=== PATIENT | male | born 1975 | race Caucasian/White ===

== ENCOUNTER 2021-05-20 04:31 | Emergency (ER) | payer BC ==
[2021-05-20] MEDS ORDERED: Ondansetron 4 MG/2 ML SDV IVPUSH ONE (04:34)
[2021-05-20] MEDS ORDERED: Sodium Chloride 0.9% 1,000 ML IV ONE (04:34)
[2021-05-20] MEDS ORDERED: Sodium Chloride 0.9% 2.5 ML Syringe FLUSH PRN (04:34)
[2021-05-20] MEDS ORDERED: Sodium Chloride 0.9% 10 ML Syringe FLUSH PRN (04:34)
[2021-05-20] MEDS ORDERED: fentaNYL 50 MCG/ML SDV IVPUSH ONE ×3 (04:36→07:45)
--- NOTE | 2021-05-20 06:15 | EDM.PDOC ---
<Solomon Esteves - Last Filed: 05/20/21 06:19> ED HPI GENERAL MEDICAL PROBLEM - General Chief Complaint: Abdominal Pain Stated Complaint: ABDOMINAL PAIN Time Seen by Provider: 05/20/21 05:18 - History of Present Illness INITIAL COMMENTS - FREE TEXT/NARRATIVE: HISTORY AND PHYSICAL: History of present illness: This is a 45-year-old gentleman with no significant history of hypertension, diabetes, liver, lung, kidney problems who denies any prior surgeries other than bariatric surgery for gastric bypass performed in 2017 in [place] who presents ER today secondary to midepigastric and right periumbilical pain as well as pain radiating to his back. Patient reports that he was in his usual state of health today. He reports he was outside doing chores around 6 PM. He reports that after finishing his chores he felt discomfort in his back so he took a couple ibuprofen. Patient reports that he is aware that he is not supposed take ibuprofen and reports prior to the 2 pills that he took at 6 PM he had not taken any ibuprofen for greater than 6 months. Patient reports that the pain in his back improved until he ate dinner when he felt that the food got stuck in his stomach. Patient reports he started having significant midepigastric abdominal discomfort resulting in emesis of food particles with no biliary material, coffee-ground emesis or hematemesis. Patient reports that through the course of the night he started developing pain extending in his right periumbilical and back. Patient reports he has had no recent fevers, shakes, chills, diarrhea, dysuria, frequency, urgency, hematuria. Patient reports that he normally is extremely regular but his labs of movement was on Sunday. Patient reports no melena or bright red blood per rectum at that time. Patient reports that the p ain has been constant and not colicky in nature. Review of systems: As per history of present illness and below otherwise all systems reviewed and negative. Past medical history: As per history of present illness and as reviewed below otherwise noncontributory. Surgical history: As per history of present illness and as reviewed below otherwise noncontributory. Social history: No reported history of drug abuse. Family history: As per history of present illness and as reviewed below otherwise noncontributory. Physical exam: This patient was seen and evaluated during the 2019 SARS-CoV-2 novel coronavirus pandemic period. Community viral transmission is ongoing at time of this encounter and the emergency department is operating under pandemic response procedures. Constitutional: Patient is oriented to person, place, and time. Appears well- developed and well-nourished. No distress. HEENT: Moist mucous membranes Head: Normocephalic and atraumatic Eyes: Right eye exhibits no discharge. Left eye exhibits no discharge. No scleral icterus Neck: Normal range of motion. No tracheal deviation present. Cardiovascular: Normal rate and regular rhythm. Pulmonary: Effort normal, no respiratory distress. Abd: Soft, nondistended, no rebound/guarding, no psoas or obturator signs, no tenderness at Mcberney's point, no Jaeger's sign. Pt does not present with an exam that would be consistent with an acute surgical abdomen at this time. Patient has tenderness to palpation diffusely throughout his abdomen which is greatest in the midepigastric area as well as in his periumbilical region. Patient also has some mild discomfort with palpating his right flank. Musculoskeletal: Normal range of motion Neurologic: Alert and oriented to person, place and time. Skin: [place], warm and dry. Psychiatric: Normal mood and affect. Behavior is normal. Judgment and thought content normal. Nursing note and vital signs have been reviewed Diagnostics: CBC, CMP, lipase, CT scan of the abdomen pelvis with IV and oral contrast, Covid test. Therapeutics: Fentanyl 75 mcg IV NSS x1 L Zofran 4 mg IV Repeat dose fentanyl Assessment and plan: During the course of the patient's evaluation for abdominal pain, kidney stone, pancreatitis, cholecystitis, diverticulitis, abdominal aortic aneurysm, myocardial infarction, ischemic bowel, ruptured peptic ulcer, ruptured viscus, UTI,and appendicitis as well as other causes of abdominal pain have been considered. 45-year-old gentleman with a history of gastric bypass who presents ER today secondary to abdominal pain. Patient reports he had taken a couple tablets of ibuprofen at around 6 PM prior to the pain starting secondary to pain in his back after doing chores at home. Patient reports shortly after eating he started experiencing severe midepigastric abdominal discomfort resulting in emesis. Given his bariatric surgery, the patient will need a CT scan of his abdomen pelvis with IV as well as oral contrast. Patient also have a CBC, CMP, lipase drawn. Patient will also get a Covid test done as well. In the ED, the patient was given IV fluids, and adequate analgesia. Patient was given 1 course of fentanyl and reports some improvement but is requesting a second dose. Definitive disposition and diagnosis as appropriate pending reevaluation and review of above. Middle Abdomen Pain Score (Numeric/FACES): 7 - Related Data Allergies Allergy/AdvReac Type Severity Reaction Status Date / Time No Known Allergies Allergy Verified 05/20/21 04:47 Home Meds: Home Meds Omeprazole 40 mg PO DAILY #30 capsule. 05/20/21 [Rx] Past Medical History HEENT History: Reports: None Cardiovascular History: Reports: None Respiratory History: Reports: None Musculoskeletal History: Reports: None Neurological History: Reports: None Psychiatric History: Reports: None Endocrine/Metabolic History: Reports: None Hematologic History: Reports: None Immunologic History: Reports: None Oncologic (Cancer) History: Reports: None Dermatologic History: Reports: None - Infectious Disease History Infectious Disease History: Reports: Chicken Pox - Past Surgical History Head Surgeries/Procedures: Reports: None HEENT Surgical History: Reports: None GI Surgical History: Reports: Bariatric Procedure Male Surgical History: Reports: None Endocrine Surgical History: Reports: None Neurological Surgical History: Reports: None Musculoskeletal Surgical History: Reports: None Oncologic Surgical History: Reports: None Dermatological Surgical History: Reports: None Social & Family History - Family History Family Medical History: No Pertinent Family History - Tobacco Use Tobacco Use Status *Q: Never Tobacco User - Caffeine Use Caffeine Use: Reports: Coffee - Recreational Drug Use Recreational Drug Use: No ED ROS GENERAL - Review of Systems Review Of Systems: See Below ED EXAM, GENERAL - Physical Exam Exam: See Below #1 Interpretation EKG Date: 05/20/21 Time: 06:14 EKG Interpretation Comments: EKG: As interpreted by ER physician: [place]: Nonspecific ST-T wave abnormalities Normal axis of -[address] elevation CT Normal sinus rhythm heart rate of 91 Departure - Departure Disposition: Home, Self-Care 01 Clinical Impression: Gastritis, Constipation, Cholelithiasis - Discharge Information Prescriptions: Omeprazole 40 mg PO DAILY #30 capsule. Instructions: Cholelithiasis, Gastritis, Adult, Constipation, Adult, [id number] Referrals: Isaías Bynum MD [Primary Care Provider] - Forms: ED Department Discharge Additional Instructions: You were evaluated today on an emergent basis. At this time all of your lab work was normal and your CT did show evidence of inflammation of the lining of your stomach, constipation, and some gallstones. We did provide you with narcotic medication to help with your pain today. At this time I did discuss with you that I would like you to take omeprazole 40 mg daily for the next 30 days which has been sent to [facility] pharmacy. In addition I would like you to refrain from acidic foods including carbonated beverages. Also given that you have had a gastric bypass I do not recommend the use of NSAIDs such as aspirin, ibuprofen, Aleve. For the constipation I do recommend that you use magnesium citrate once today while at home and continue to eat an adequate amount of fiber. Please stay hydrated. If you do not have a bowel movement I recommend the use of one enema which can be purchased [id number]. If you have any worsening pain, fever or you are concerned you are welcome to return to the emergency department. [facility] [address] [place] [address] [id number] [address] [address] The patient is informed of any results of their evaluation and diagnostic workup and all questions are answered. They are given discharge instructions and return precautions. The patient is stable for discharge. The patient states they understand and agree with the plan and that they will return if their symptoms get worse or if they have any new concerns. The following information is given to patients seen in the emergency department who are being discharged to home. This information is to outline your options for follow-up care. We provide all patients seen in our emergency department with a follow-up referral. The need for follow-up, as well as the timing and circumstances, are variable depending upon the specifics of your emergency department visit. If you don't have a primary care physician on staff, we will provide you with a referral. We always advise you to contact your personal physician following an emergency department visit to inform them of the circumstance of the visit and for follow-up with them and/or the need for any referrals to a consulting specialist. The emergency department will also refer you to a specialist when appropriate. This referral assures that you have the opportunity for follow-up care with a specialist. All of these measure are taken in an effort to provide you with optimal care, which includes your follow-up. Under all circumstances we always encourage you to contact your private helen changriselda who remains a resource for coordinating your care. When calling for follow-up care, please make the office aware that this follow-up is from your recent emergency room visit. If for any reason you are refused follow-up, please contact the [facility] Emergency Department at and asked to speak to the emergency department charge nurse. <Kodak Chery - Last Filed: 05/20/21 10:06> ED HPI GENERAL MEDICAL PROBLEM - History of Present Illness INITIAL COMMENTS - FREE TEXT/NARRATIVE: Patient was signed out to me by Dr. Esteves pending CT at 7 AM. I promptly performed a detailed physical examination and my examination was done after ED treatments were initiated by the signout provider. Patient has been under the care of previous provider up until this point. On my reevaluation the patient was sleeping comfortably in the stretcher. On discussion with the patient he stated that he also has not had a bowel movement in the last 2 to 3 days. He states that he normally has bowel movements 2 times a day. He states that since being in the emergency department his pain has improved. We will reevaluate after imaging. Laboratory reviewed does not reveal any abnormalities. Urinalysis did reveal ketonuria with microscopic hematuria. The radiological images were viewed by myself along with reading the report from the radiologist. CT abdomen pelvis with IV and p.o. contrast reveals evidence of gastritis, moderately hydropic gallbladder with dependent calculi and evidence of a moderate amount of stool through the colon. No evidence of diverticulitis. After imaging I did report the findings to the patient. At this time the patient's pain was adequately controlled. I do believe the patient has 2 reasons for his pain 1 being chronic gastritis. I did encourage the patient to stop using NSAIDs as he is a gastric bypass patient. In addition I discussed the use of omeprazole daily for the next 30 days and follow-up with outpatient primary care physician. In addition I did discuss that we could provide him with magnesium citrate and use an enema outpatient for the constipation. I do believe the pain is likely secondary to the constipation. The patient was amenable to this plan had no further questions. The patient was given strict return precautions DISPOSITION: The patient was discharged home in stable condition. The patient will follow up with primary care physician in 3 to 5 days CONDITION: Fair PROCEDURES: None FINAL IMPRESSION(S)/DIAGNOSES: 1. Acute abdominal pain secondary to constipation and gastritis Kodak Chery M.D. Course - Vital Signs Last Recorded V/S: Last Vital Signs Temp 36.5 C 05/20/21 04:48 Pulse 106 H 05/20/21 08:52 Resp 16 05/20/21 08:52 BP 152/85 H 05/20/21 08:52 Pulse Ox 111 H 05/20/21 08:52 - Orders/Labs/Meds Orders: Active Orders 24 hr Category Date Time Status Saline Lock Insert [OM.PC] Stat Oth 05/20/21 04:34 Ordered Labs: Laboratory Tests 05/20/21 05/20/21 05/20/21 Range/Units 05:56 05:56 06:22 WBC 12.52 H (4.0-11.0) K/uL RBC 5.03 (4.50-5.90) M/uL Hgb 15.2 (13.0-17.0) g/dL Hct 43.2 (38.0-50.0) % MCV 85.9 (80.0-98.0) fL MCH 30.2 (27.0-32.0) pg MCHC 35.2 (31.0-37.0) g/dL RDW Std Deviation 39.5 (28.0-62.0) fl RDW Coeff of Jackeline 13 (11.0-15.0) % Plt Count 198 (150-400) K/uL MPV 9.70 (7.40-12.00) fL Neut % (Auto) 92.9 H (48.0-80.0) % Lymph % (Auto) 3.6 L (16.0-40.0) % Luce % (Auto) 3.4 (0.0-15.0) % Eos % (Auto) 0.0 (0.0-7.0) % Baso % (Auto) 0.1 (0.0-1.5) % Neut # (Auto) 11.6 H (1.4-5.7) K/uL Lymph # (Auto) 0.5 L (0.6-2.4) K/uL Luce # (Auto) 0.4 (0.0-0.8) K/uL Eos # (Auto) 0.0 (0.0-0.7) K/uL Baso # (Auto) 0.0 (0.0-0.1) K/uL Nucleated RBC % 0.0 /100WBC Nucleated RBCs # 0 K/uL Sodium 137 (136-148) mmol/L Potassium 3.8 (3.5-5.1) mmol/L Chloride 102 (98-107) mmol/L Carbon Dioxide 26.2 (21.0-32.0) mmol/L BUN 20 H (7.0-18.0) mg/dL Creatinine 0.9 (0.8-1.3) mg/dL Est Cr Clr Drug Dosing 98.17 mL/min Estimated GFR (MDRD) > 60.0 ml/min Glucose 160 H (74-106) mg/dL Calcium 9.0 (8.5-10.1) mg/dL Total Bilirubin 0.8 (0.2-1.0) mg/dL AST 21 (15-37) IU/L ALT 31 (14-63) IU/L Alkaline Phosphatase 84 (46-116) U/L Total Protein 7.8 (6.4-8.2) g/dL Albumin 3.8 (3.4-5.0) g/dL Globulin 4.0 (2.6-4.0) g/dL Albumin/Globulin Ratio 0.9 (0.9-1.6) Lipase 49 L (73-393) U/L Urine Color Urine Appearance Urine pH (5.0-8.0) Ur Specific Garrett (1.001-1.035) Urine Protein (NEGATIVE) mg/dL Urine Glucose (UA) (NEGATIVE) mg/dL Urine Ketones (NEGATIVE) mg/dL Urine Occult Blood (NEGATIVE) Urine Nitrite (NEGATIVE) Urine Bilirubin (NEGATIVE) Urine Urobilinogen (<2.0) EU/dL Ur Leukocyte Esterase (NEGATIVE) Urine RBC (0-2/HPF) Urine WBC (0-5/HPF) Ur Epithelial Cells (NONE-FEW) Urine Bacteria (NEGATIVE) Urine Mucus (NONE-MOD) SARS-CoV-2 RNA (KARELY) NEGATIVE (NEGATIVE) 05/20/21 Range/Units 07:14 WBC (4.0-11.0) K/uL RBC (4.50-5.90) M/uL Hgb (13.0-17.0) g/dL Hct (38.0-50.0) % MCV (80.0-98.0) fL MCH (27.0-32.0) pg MCHC (31.0-37.0) g/dL RDW Std Deviation (28.0-62.0) fl RDW Coeff of Jackeline (11.0-15.0) % Plt Count (150-400) K/uL MPV (7.40-12.00) fL Neut % (Auto) (48.0-80.0) % Lymph % (Auto) (16.0-40.0) % Luce % (Auto) (0.0-15.0) % Eos % (Auto) (0.0-7.0) % Baso % (Auto) (0.0-1.5) % Neut # (Auto) (1.4-5.7) K/uL Lymph # (Auto) (0.6-2.4) K/uL Luce # (Auto) (0.0-0.8) K/uL Eos # (Auto) (0.0-0.7) K/uL Baso # (Auto) (0.0-0.1) K/uL Nucleated RBC % /100WBC Nucleated RBCs # K/uL Sodium (136-148) mmol/L Potassium (3.5-5.1) mmol/L Chloride (98-107) mmol/L Carbon Dioxide (21.0-32.0) mmol/L BUN (7.0-18.0) mg/dL Creatinine (0.8-1.3) mg/dL Est Cr Clr Drug Dosing mL/min Estimated GFR (MDRD) ml/min Glucose (74-106) mg/dL Calcium (8.5-10.1) mg/dL Total Bilirubin (0.2-1.0) mg/dL AST (15-37) IU/L ALT (14-63) IU/L Alkaline Phosphatase (46-116) U/L Total Protein (6.4-8.2) g/dL Albumin (3.4-5.0) g/dL Globulin (2.6-4.0) g/dL Albumin/Globulin Ratio (0.9-1.6) Lipase (73-393) U/L Urine Color YELLOW Urine Appearance CLEAR Urine pH 5.5 (5.0-8.0) Ur Specific Garrett 1.025 (1.001-1.035) Urine Protein NEGATIVE (NEGATIVE) mg/dL Urine Glucose (UA) NEGATIVE (NEGATIVE) mg/dL Urine Ketones 40 H (NEGATIVE) mg/dL Urine Occult Blood SMALL H (NEGATIVE) Urine Nitrite NEGATIVE (NEGATIVE) Urine Bilirubin NEGATIVE (NEGATIVE) Urine Urobilinogen 0.2 (<2.0) EU/dL Ur Leukocyte Esterase NEGATIVE (NEGATIVE) Urine RBC 1-3 (0-2/HPF) Urine WBC 0-1 (0-5/HPF) Ur Epithelial Cells FEW (NONE-FEW) Urine Bacteria RARE (NEGATIVE) Urine Mucus LIGHT (NONE-MOD) SARS-CoV-2 RNA (KARELY) (NEGATIVE) Meds: Medications Discontinued Medications Generic Name Dose Route Start Last Admin Trade Name Freq PRN Reason Stop Dose Admin Alum [place]/Mag [place]/Simeth XS 0 ml 05/20/21 08:04 05/20/21 08:50 15 ml/ Lidocaine HCl 5 ml PO 05/20/21 08:05 20 each ONETIME ONE Administration Diatrizoate Meglum/Diatrizoate Sod 15 ml 05/20/21 07:18 05/20/21 05:00 Diatrizoate Meglumine/Diatrizoate Sodium 37% 30 Ml Bottle PO 05/20/21 07:19 15 ml ONETIME STA Administration Fentanyl 75 mcg 05/20/21 04:36 05/20/21 05:52 Fentanyl 50 Mcg/Ml Sdv IVPUSH 05/20/21 04:37 75 mcg ONETIME ONE Administration Fentanyl 75 mcg 05/20/21 06:15 05/20/21 06:26 Fentanyl 50 Mcg/Ml Sdv IVPUSH 05/20/21 06:16 75 mcg ONETIME ONE Administration Fentanyl 25 mcg 05/20/21 07:45 05/20/21 07:55 Fentanyl 50 Mcg/Ml Sdv IVPUSH 05/20/21 07:46 25 mcg ONETIME ONE Administration Sodium Chloride 1,000 mls @ 999 mls/hr 05/20/21 04:34 05/20/21 05:52 Normal Saline IV 05/20/21 05:34 999 mls/hr .Bolus ONE Administration Magnesium Citrate 275 ml 05/20/21 08:22 05/20/21 08:50 Magnesium Citrate Solution 296 Ml Bottle PO 05/20/21 08:23 296 ml ONETIME ONE Administration Ondansetron HCl 4 mg 05/20/21 04:34 05/20/21 05:51 Ondansetron 4 Mg/2 Ml Sdv IVPUSH 05/20/21 04:35 4 mg ONETIME ONE Administration Sodium Chloride 10 ml 05/20/21 04:34 05/20/21 06:26 Sodium Chloride 0.9% 10 Ml Syringe FLUSH 10 ml ASDIRECTED PRN Administration Keep Vein Open Sodium Chloride 2.5 ml 05/20/21 04:34 05/20/21 06:26 Sodium Chloride 0.9% 2.5 Ml Syringe FLUSH 2.5 ml ASDIRECTED PRN Administration Keep Vein Open Departure - Departure Time of Disposition: 08:29 Condition: Fair Sepsis Event Note (ED) - Focused Exam Vital Signs: Vital Signs Temp Pulse Resp BP Pulse Ox 05/20/21 08:52 106 H 16 152/85 H 111 H 05/20/21 07:57 106 H 12 147/79 H 109 H 05/20/21 07:43 104 H 16 147/79 H 94 L 05/20/21 06:37 100 17 185/93 H 98 05/20/21 06:28 99 17 191/99 H 96 05/20/21 04:48 36.5 C 95 20 175/95 H 96
[2021-05-20 06:24] LABS: BLOOD UREA NITROGEN,BUN 20 mg/dL (7.0-18.0); CARBON DIOXIDE,CO2 26.2 mmol/L (21.0-32.0); CHLORIDE,CL 102 mmol/L (98-107); GLUCOSE RANDOM 160 mg/dL (74-106); LIPASE 49 U/L (73-393); POTASSIUM,K 3.8 mmol/L (3.5-5.1); SODIUM,NA 137 mmol/L (136-148)
[2021-05-20] MEDS ORDERED: Diatrizoate Meglumine/Diatrizoate Sodium 37% 30 ML Bottle PO STA (07:18)
--- NOTE | 2021-05-20 07:53 | CT ---
Indication: Abdominal pain status post bariatric surgery Technique: Volumetric multidetector CT images of the abdomen and pelvis were obtained after the administration of intravenous contrast. 100 cc Isovue 370 low osmolar intravenous contrast Comparison: None available. Findings: There is bibasilar atelectasis and parenchymal scarring. The liver is normal in attenuation without intrahepatic biliary ductal dilatation. The portal vein is patent. The gallbladder demonstrates moderate hydropic appearance with dependent calculi seen within the gallbladder lumen. There is no significant common biliary ductal dilatation or abrupt cut off. The spleen is normal in enhancement and size. Postoperative changes of the stomach status post Marilou-en-Y gastric bypass are appreciated with moderate focal thickening of the gastric antrum commensurate with likely sequela of chronic gastritis. There is normal contrast opacification of the bypassed Marilou limb without evidence of contrast extravasation. The pancreas is normal in enhancement without significant atrophy. The adrenal glands are unremarkable. The kidneys demonstrate preserved corticomedullary differentiation without evidence of obstructive uropathy. There is a moderate amount of stool seen throughout the colon with mild to moderate colonic diverticulosis without evidence of diverticulitis. The appendix is unremarkable. There is no significant mesenteric, retroperitoneal, or pelvic sidewall lymph nodes. The aorta is nonaneurysmal. There is no significant atherosclerotic disease appreciated. The solid pelvic viscera are grossly unremarkable. There is no free fluid or free air. There is a small fat containing umbilical hernia. The lumbar vertebral body heights are grossly maintained with [id number] degenerative disc disease. Impression: Postoperative changes of the stomach status post Marilou-en-Y gastric bypass without evidence of contrast extravasation or obstruction. Mild chronic gastritis changes of the bypassed gastric segment are appreciated. Demonstration of a moderately hydropic gallbladder with multiple dependent calculi within the gallbladder lumen. Please note that all CT scans at this facility use dose modulation, iterative reconstruction, and/or weight-based dosing when appropriate to reduce radiation dose to as low as reasonably achievable. Dictated by Ken Pereira MD @ 05/20/2021 7:53:14 AM (Electronically Signed)
[2021-05-20] MEDS ORDERED: Alum Hydro/Mag Hydro/Simeth XS 15 ML, Lidocaine 2% 5 ML PO ONE ×2 (08:04)
[2021-05-20] MEDS ORDERED: Magnesium Citrate Solution 296 ML Bottle PO ONE (08:22)
== END 2021-05-20 08:51 | disposition home or self-care (01) ==
LOC: MW.ED 04:31
DX: K80.20 Calculus of gallbladder without cholecystitis without obstruction (principal); K59.00 Constipation, unspecified; K29.70 Gastritis, unspecified, without bleeding; Z79.899 Other long term (current) drug therapy; Z20.822 Contact with and (suspected) exposure to COVID-19
CPT/HCPCS: 36415; 74177; 80053; 81001; 83690; 85025; 87635; 93005; 96374; 96375; 96376; 99284; A9270; J2405; J3010; J7030; Q9963; U0002

== ENCOUNTER 2021-05-20 16:48 | Observation (INO) | payer BC ==
[2021-05-20] MEDS ORDERED: Lactated Ringers 1,000 ML IV ONE (17:49)
[2021-05-20] MEDS ORDERED: fentaNYL 50 MCG/ML SDV IVPUSH ONE (17:57)
[2021-05-20] MEDS ORDERED: cefTRIAXone 1 GM in Premix Bag 1 BAG IV ONE (18:05)
--- NOTE | 2021-05-20 18:18 | US ---
INDICATION: Right upper quadrant abdominal pain; rule out cholecystitis. COMPARISON: CT abdomen and pelvis with intravenous contrast 05/20/2021. TECHNIQUE: Ultrasound examination of the right upper quadrant of the abdomen. FINDINGS: The liver is measuring 15.3 cm in the maximum vertical dimension. Fatty infiltration of the liver. Cholelithiasis . Thickening of the gallbladder wall measuring 5.2 mm in thickness. Positive sonographic Jaeger`s sign; rule out acute cholecystitis. Nondilated common bile duct measuring 4.4 mm in diameter. Suboptimal visualization of the pancreas secondary to increased bowel gas in the upper abdomen. The right kidney is measuring 10.9 x 6.1 x 5.8 cm without any obstructive uropathy or perinephric pathology. IMPRESSION: 1. Cholelithiasis with thickening of the gallbladder wall and positive sonographic Jaeger`s sign; rule out acute cholecystitis. 2. Fatty liver. 3. Sub optimal visualization of the pancreas secondary to increased bowel gas in the upper abdomen. Dictated by Jose Buchanan MD @ 05/20/2021 6:17:12 PM (Electronically Signed)
[2021-05-20 18:47] LABS: BLOOD UREA NITROGEN,BUN 18 mg/dL (7.0-18.0); CHLORIDE,CL 100 mmol/L (98-107); GLUCOSE RANDOM 137 mg/dL (74-106); POTASSIUM,K 3.9 mmol/L (3.5-5.1); SODIUM,NA 135 mmol/L (136-148)
--- NOTE | 2021-05-20 19:03 | EDM.PDOC ---
ED HPI GENERAL MEDICAL PROBLEM - General Chief Complaint: Abdominal Pain Stated Complaint: ABDOMINAL PAIN, FEVER Time Seen by Provider: 05/20/21 17:51 - History of Present Illness INITIAL COMMENTS - FREE TEXT/NARRATIVE: CHIEF COMPLAINT(S): Fever and abdominal pain HISTORY OF PRESENT ILLNESS: This is a 45-year-old man who was evaluated earlier today by myself who was diagnosed with gastritis and constipation who comes to the emergency department with a chief complaint of fever and abdominal pain. Patient states that on discharge she did try the magnesium citrate however he did not have a bowel movement. He states that throughout the day the pain migrated from his left upper quadrant and right lower quadrant up into his right upper quadrant which has become more constant. He states that he then developed a fever and his states they did had an infrared thermometer which read 105 and on repeat was 103 and at the clinic it was 102. He states that he has not had any vomiting or diarrhea. He denies any cough, runny nose, congestion, chest pain or shortness of breath. REVIEW OF SYSTEMS: Constitutional: Positive for fever Eyes: Denies eye pain Ears, Nose, Mouth, & Throat: Denies earache Cardiovascular: Denies chest pain Respiratory: Denies shortness of breath Gastrointestinal: Positive for abdominal pain. Denies nausea, vomiting, diarrhea, hematochezia, melena, hematemesis Genitourinary: Denies hematuria Skin:Denies a rash MSK: Denies joint pain Neurological: Denies blurred vision Psychiatric: Denies depression PAST MEDICAL HISTORY: As per history of present illness and as reviewed below otherwise noncontributory. SURGICAL HISTORY: As per history of present illness and as reviewed below otherwise noncontributory. SOCIAL HISTORY: As per history of present illness and as reviewed below ot herwise noncontributory. FAMILY HISTORY: As per history of present illness and as reviewed below otherwise noncontributory. EXAMINATION OF ORGAN SYSTEMS/BODY AREAS: Constitutional: Blood pressure was 166/90, heart rate 94, respiratory rate 16 with an oxygen saturation 96% on room air General: Middle-aged man who is in no acute distress Psychiatric: Appropriate mood and affect. Eyes: No scleral icterus or conjunctival erythema ENMT: Moist mucous membranes. No pharyngeal erythema Cardiovascular: Regular, rate, and rhythm. No gallops, murmurs, or rubs. Bilateral upper extremity pulses symmetric and intact. No peripheral edema. No JVD. Respiratory: Lungs clear to auscultation bilaterally. No wheezes, rales, or rhonchi. Gastrointestinal: Soft, nondistended, positive Jaeger signs with right upper quadrant tenderness to palpation. No rebound or guarding. Genitourinary: No suprapubic tenderness Musculoskeletal: Normal range of motion. Skin: No lesions or abrasions. Neurological: Alert, GCS 15 MEDICAL DECISION MAKING AND COURSE IN THE ED WITH INTERPRETATION/REVIEW OF DIAGNOSTIC STUDIES: This is a 45-year-old man with a recent evaluation by myself who comes to the emergency department with constant right upper quadrant abdominal pain with positive Jaeger sign who is now febrile. Given the patient has a temperature greater than 36 and heart rate greater than 90 with possible cholecystitis we will undergo a septic work-up including CBC, CMP, lactic acid, blood cultures. Urinalysis will not be repeated. We will start the patient on ceftriaxone and Flagyl. We will provide the patient with 50 mcg of IV fentanyl. Provide the patient 1 relator of lactated Ringer's bolus and will reevaluate additional need for bolus after lactic acid. We will make the patient n.p.o. I did obtain a right upper quadrant ultrasound DDx: Cholecystitis, pancreatitis Laboratory: CBC reveals a leukocytosis 16.88 with neutrophilic predominance. INR is normal. CMP reveals hyponatremia at 135 otherwise unremarkable. Total bilirubin is 1.3. Lactic acid is 0.8. No transaminitis. The radiological images were viewed by myself along with reading the report from the radiologist. Right upper quadrant abdominal ultrasound reveals thickened gallbladder wall with positive Jaeger sign. No CBD dilation. After imaging I did contact Dr. Maurice who stated she would come and evaluate the patient. Dr. Maurice did come and evaluate the patient. The patient will be admitted to the hospital for possible surgical intervention tomorrow morning. I did start the patient on maintenance fluids of lactated Ringer's at 150 cc/h as the patient's lactic acid does not indicate any need for further fluid bolus administration. This was all discussed with the patient he was amenable to admi ssion at this time DISPOSITION: Patient admitted to the hospital in stable condition CONDITION: Serious PROCEDURES: None FINAL IMPRESSION(S)/DIAGNOSES: 1. Acute sepsis secondary to acute cholecystitis Kodak Chery M.D. Abdomen Pain Score (Numeric/FACES): 7 - Related Data Allergies Allergy/AdvReac Type Severity Reaction Status Date / Time No Known Allergies Allergy Verified 05/20/21 16:57 Home Meds: Home Meds Omeprazole 40 mg PO DAILY #30 capsule. 05/20/21 [Rx] Past Medical History HEENT History: Reports: None Cardiovascular History: Reports: None Respiratory History: Reports: None Musculoskeletal History: Reports: None Neurological History: Reports: None Psychiatric History: Reports: None Endocrine/Metabolic History: Reports: None Hematologic History: Reports: None Immunologic History: Reports: None Oncologic (Cancer) History: Reports: None Dermatologic History: Reports: None - Infectious Disease History Infectious Disease History: Reports: Chicken Pox - Past Surgical History Head Surgeries/Procedures: Reports: None HEENT Surgical History: Reports: None GI Surgical History: Reports: Bariatric Procedure Male Surgical History: Reports: None Endocrine Surgical History: Reports: None Neurological Surgical History: Reports: None Musculoskeletal Surgical History: Reports: None Oncologic Surgical History: Reports: None Dermatological Surgical History: Reports: None Social & Family History - Family History Family Medical History: No Pertinent Family History - Caffeine Use Caffeine Use: Reports: Coffee ED ROS GENERAL - Review of Systems Review Of Systems: See Below ED EXAM, GENERAL - Physical Exam Exam: See Below Course - Vital Signs Last Recorded V/S: Last Vital Signs Temp 38.5 C H 05/20/21 18:20 Pulse 90 05/20/21 18:56 Resp 16 05/20/21 18:56 BP 165/89 H 05/20/21 18:56 Pulse Ox 97 05/20/21 18:56 - Orders/Labs/Meds Orders: Active Orders 24 hr Category Date Time Status NPO [Nothing Per Oral Diet] [DIET] Diet 05/21/21 Breakfast Active CULTURE BLOOD [BC] Stat Lab 05/20/21 18:20 Received CULTURE BLOOD [BC] Stat Lab 05/20/21 18:27 Received UA W/ANDRE RFLX IF INDICATED [URIN] Stat Lab 05/20/21 18:05 Ordered Lactated Ringers [Ringers, Lactated] 1,000 ml Med 05/20/21 19:15 Ordered IV ASDIRECTED Blood Culture x2 Reflex Set [OM.PC] Stat Oth 05/20/21 18:05 Ordered Labs: Laboratory Tests 05/20/21 05/20/21 05/20/21 Range/Units 18:17 18:17 18:17 WBC 16.88 H (4.0-11.0) K/uL RBC 4.97 (4.50-5.90) M/uL Hgb 15.2 (13.0-17.0) g/dL Hct 42.7 (38.0-50.0) % MCV 85.9 (80.0-98.0) fL MCH 30.6 (27.0-32.0) pg MCHC 35.6 (31.0-37.0) g/dL RDW Std Deviation 39.9 (28.0-62.0) fl RDW Coeff of Jackeline 13 (11.0-15.0) % Plt Count 219 (150-400) K/uL MPV 10.20 (7.40-12.00) fL Neut % (Auto) 87.8 H (48.0-80.0) % Lymph % (Auto) 5.9 L (16.0-40.0) % [place] % (Auto) 6.2 (0.0-15.0) % Eos % (Auto) 0.0 (0.0-7.0) % Baso % (Auto) 0.1 (0.0-1.5) % Neut # (Auto) 14.8 H (1.4-5.7) K/uL Lymph # (Auto) 1.0 (0.6-2.4) K/uL [place] # (Auto) 1.1 H (0.0-0.8) K/uL Eos # (Auto) 0.0 (0.0-0.7) K/uL Baso # (Auto) 0.0 (0.0-0.1) K/uL Nucleated RBC % 0.0 /100WBC Nucleated RBCs # 0 K/uL INR 1.10 Sodium (136-148) mmol/L Potassium (3.5-5.1) mmol/L Chloride (98-107) mmol/L Carbon Dioxide (21.0-32.0) mmol/L BUN (7.0-18.0) mg/dL Creatinine (0.8-1.3) mg/dL Est Cr Clr Drug Dosing Estimated GFR (MDRD) ml/min Glucose (74-106) mg/dL Lactic Acid 0.8 (0.4-2.0) mmol/L Calcium (8.5-10.1) mg/dL Total Bilirubin (0.2-1.0) mg/dL AST (15-37) IU/L ALT (14-63) IU/L Alkaline Phosphatase (46-116) U/L Total Protein (6.4-8.2) g/dL Albumin (3.4-5.0) g/dL Globulin (2.6-4.0) g/dL Albumin/Globulin Ratio (0.9-1.6) 05/20/21 Range/Units 18:17 WBC (4.0-11.0) K/uL RBC (4.50-5.90) M/uL Hgb (13.0-17.0) g/dL Hct (38.0-50.0) % MCV (80.0-98.0) fL MCH (27.0-32.0) pg MCHC (31.0-37.0) g/dL RDW Std Deviation (28.0-62.0) fl RDW Coeff of Jackeline (11.0-15.0) % Plt Count (150-400) K/uL MPV (7.40-12.00) fL Neut % (Auto) (48.0-80.0) % Lymph % (Auto) (16.0-40.0) % [place] % (Auto) (0.0-15.0) % Eos % (Auto) (0.0-7.0) % Baso % (Auto) (0.0-1.5) % Neut # (Auto) (1.4-5.7) K/uL Lymph # (Auto) (0.6-2.4) K/uL [place] # (Auto) (0.0-0.8) K/uL Eos # (Auto) (0.0-0.7) K/uL Baso # (Auto) (0.0-0.1) K/uL Nucleated RBC % /100WBC Nucleated RBCs # K/uL INR Sodium 135 L (136-148) mmol/L Potassium 3.9 (3.5-5.1) mmol/L Chloride 100 (98-107) mmol/L Carbon Dioxide 26.0 (21.0-32.0) mmol/L BUN 18 (7.0-18.0) mg/dL Creatinine 0.8 (0.8-1.3) mg/dL Est Cr Clr Drug Dosing TNP Estimated GFR (MDRD) > 60.0 ml/min Glucose 137 H (74-106) mg/dL Lactic Acid (0.4-2.0) mmol/L Calcium 8.4 L (8.5-10.1) mg/dL Total Bilirubin 1.3 H (0.2-1.0) mg/dL AST 23 (15-37) IU/L ALT 31 (14-63) IU/L Alkaline Phosphatase 81 (46-116) U/L Total Protein 7.6 (6.4-8.2) g/dL Albumin 3.5 (3.4-5.0) g/dL Globulin 4.1 H (2.6-4.0) g/dL Albumin/Globulin Ratio 0.9 (0.9-1.6) Meds: Medications Discontinued Medications Generic Name Dose Route Start Last Admin Trade Name Freq PRN Reason Stop Dose Admin Fentanyl 50 mcg 05/20/21 17:57 05/20/21 18:23 Fentanyl 50 Mcg/Ml Sdv IVPUSH 05/20/21 17:58 50 mcg ONETIME ONE Administration Lactated Ringer's 1,000 mls @ 999 mls/hr 05/20/21 17:49 05/20/21 18:28 Ringers, Lactated IV 05/20/21 18:49 999 mls/hr .BOLUS ONE Administration Ceftriaxone Sodium/Dextrose 1 50 mls @ 100 mls/hr 05/20/21 18:05 05/20/21 18:25 gm/ Premix IV 05/20/21 18:34 100 mls/hr ONETIME ONE Administration Departure - Departure Time of Disposition: 19:10 Disposition: Admitted As Inpatient 64 Condition: Serious Clinical Impression: Cholecystitis - Discharge Information Referrals: Isaías Bynum MD [Primary Care Provider] - Forms: ED Department Discharge Sepsis Event Note (ED) - Evaluation Sepsis Screening Result: No Definite Risk - Focused Exam Vital Signs: Vital Signs Temp Temp Temp Pulse Resp BP Pulse Ox 05/20/21 18:56 90 16 165/89 H 97 05/20/21 18:20 38.5 C H 94 16 166/90 H 96 05/20/21 18:04 38.5 C H 05/20/21 16:57 37.8 C 37.7 C 98 16 178/92 H 96 - My Orders Last 24 Hours: My Active Orders 05/20/21 18:05 UA W/ANDRE RFLX IF INDICATED [URIN] Stat Blood Culture x2 Reflex Set [OM.PC] Stat 05/20/21 18:20 CULTURE BLOOD [BC] Stat 05/20/21 18:27 CULTURE BLOOD [BC] Stat 05/20/21 19:15 Lactated Ringers [Ringers, Lactated] 1,000 ml IV ASDIRECTED 05/21/21 Breakfast NPO [Nothing Per Oral Diet] [DIET] - Assessment/Plan Last 24 Hours: My Active Orders 05/20/21 18:05 UA W/ANDRE RFLX IF INDICATED [URIN] Stat Blood Culture x2 Reflex Set [OM.PC] Stat 05/20/21 18:20 CULTURE BLOOD [BC] Stat 05/20/21 18:27 CULTURE BLOOD [BC] Stat 05/20/21 19:15 Lactated Ringers [Ringers, Lactated] 1,000 ml IV ASDIRECTED 05/21/21 Breakfast NPO [Nothing Per Oral Diet] [DIET]
[2021-05-20] MEDS ORDERED: Sodium Chloride 0.9% 10 ML Syringe FLUSH PRN (19:25)
[2021-05-20] MEDS ORDERED: Sodium Chloride 0.9% 20 ML SDV IV PRN (19:25)
[2021-05-20] MEDS ORDERED: Sodium Chloride 0.9% 2.5 ML Syringe FLUSH PRN (19:25)
[2021-05-20] MEDS ORDERED: Acetaminophen 1,000 MG in Premix Bag 1 BAG IV PRN (19:28)
[2021-05-20] MEDS ORDERED: Ondansetron 4 MG/2 ML SDV IVPUSH PRN (19:29)
[2021-05-20] MEDS ORDERED: diphenhydrAMINE 50 MG/ML SDV IVPUSH PRN (19:29)
[2021-05-20] MEDS ORDERED: Scopolamine 1.5 MG Transdermal Patch TRDERM SCH (19:30)
[2021-05-20] MEDS ORDERED: Lactated Ringers 1,000 ML IV SCH (19:30)
--- NOTE | 2021-05-20 19:38 | PCM.HP.2 ---
H&P History of Present Illness - General Date of Service: 05/20/21 Admit Problem/Dx: Admission Diagnosis/Problem Admission Diagnosis/Problem Acute cholecystitis Source of Information: Patient History Limitations: Reports: No Limitations - History of Present Illness Initial Comments - Free Text/Narative: Patient is a 45 year old male who developed abdominal pain yesterday. He had no appetite. He denied nausea or vomiting. He presented to the ER this morning. He had stable vital signs and a slight leukocytosis. CT abdomen pelvis showed gallstones in a hydropic gallbladder as well as constipation. He was given mag citrate and told to follow up in clinic. He continued to have worsening symptoms that were more centered in the RUQ. He presented to the walk in clinic and was transferred to the ER again. He was febrile on arrival but had stable BP and heart rate. He had an increased WBC to 16K. He was given IV antibiotics. US of the RUQ showed a thickened gallbladder with stones. He has never had these symptoms before. He had a dane en y gastric bypass in 2017. Abdomen Pain Score (Numeric/FACES): 7 - Related Data Allergies/Adverse Reactions: Allergies Allergy/AdvReac Type Severity Reaction Status Date / Time No Known Allergies Allergy Verified 05/20/21 16:57 Home Medications: Home Meds Omeprazole 40 mg PO DAILY #30 capsule. 05/20/21 [Rx] Past Medical History HEENT History: Reports: None Cardiovascular History: Reports: None Respiratory History: Reports: None Musculoskeletal History: Reports: None Neurological History: Reports: None Psychiatric History: Reports: None Endocrine/Metabolic History: Reports: None Hematologic History: Reports: None Immunologic History: Reports: None Oncologic (Cancer) History: Reports: None Dermatologic History: Reports: None - Infectious Disease History Infectious Disease History: Reports: Chicken Pox - Past Surgical History Head Surgeries/Procedures: Reports: None HEENT Surgical History: Reports: None GI Surgical History: Reports: Bariatric Procedure Male Surgical History: Reports: None Endocrine Surgical History: Reports: None Neurological Surgical History: Reports: None Musculoskeletal Surgical History: Reports: None Oncologic Surgical History: Reports: None Dermatological Surgical History: Reports: None Social & Family History - Family History Family Medical History: No Pertinent Family History - Tobacco Use Tobacco Use Status *Q: Never Tobacco User - Caffeine Use Caffeine Use: Reports: Coffee H&P Review of Systems - Review of Systems: Review Of Systems: Comprehensive ROS is negative, except as noted in HPI. Exam - Exam Exam: See Below - Vital Signs Vital Signs: Last Vital Signs Temp 38.5 C H 05/20/21 18:20 Pulse 90 05/20/21 18:56 Resp 16 05/20/21 18:56 BP 165/89 H 05/20/21 18:56 Pulse Ox 97 05/20/21 18:56 Weight: 124.738 kg - Exam General: Alert, Oriented HEENT: Conjunctiva Clear, Mucosa Moist & [place], Posterior Pharynx Clear Neck: Trachea Midline Lungs: Clear to Auscultation, Normal Respiratory Effort Cardiovascular: Regular Rate, Regular Rhythm GI/Abdominal Exam: Soft, Non-Tender, No Distention, No Mass Back Exam: Normal Inspection Extremities: Normal Inspection, Normal Range of Motion Skin: Warm, Dry, Intact Neuro Extensive - Mental Status: Alert, Oriented x3 Psychiatric: Alert, Normal Affect, Normal Mood - Patient Data Lab Results Last 24 hrs: Laboratory Results - last 24 hr 05/20/21 05/20/21 05/20/21 Range/Units 18:17 18:17 18:17 WBC 16.88 H (4.0-11.0) K/uL RBC 4.97 (4.50-5.90) M/uL Hgb 15.2 (13.0-17.0) g/dL Hct 42.7 (38.0-50.0) % MCV 85.9 (80.0-98.0) fL MCH 30.6 (27.0-32.0) pg MCHC 35.6 (31.0-37.0) g/dL RDW Std Deviation 39.9 (28.0-62.0) fl RDW Coeff of Jackeline 13 (11.0-15.0) % Plt Count 219 (150-400) K/uL MPV 10.20 (7.40-12.00) fL Neut % (Auto) 87.8 H (48.0-80.0) % Lymph % (Auto) 5.9 L (16.0-40.0) % [place] % (Auto) 6.2 (0.0-15.0) % Eos % (Auto) 0.0 (0.0-7.0) % Baso % (Auto) 0.1 (0.0-1.5) % Neut # (Auto) 14.8 H (1.4-5.7) K/uL Lymph # (Auto) 1.0 (0.6-2.4) K/uL [place] # (Auto) 1.1 H (0.0-0.8) K/uL Eos # (Auto) 0.0 (0.0-0.7) K/uL Baso # (Auto) 0.0 (0.0-0.1) K/uL Nucleated RBC % 0.0 /100WBC Nucleated RBCs # 0 K/uL INR 1.10 Sodium (136-148) mmol/L Potassium (3.5-5.1) mmol/L Chloride (98-107) mmol/L Carbon Dioxide (21.0-32.0) mmol/L BUN (7.0-18.0) mg/dL Creatinine (0.8-1.3) mg/dL Est Cr Clr Drug Dosing Estimated GFR (MDRD) ml/min Glucose (74-106) mg/dL Lactic Acid 0.8 (0.4-2.0) mmol/L Calcium (8.5-10.1) mg/dL Total Bilirubin (0.2-1.0) mg/dL AST (15-37) IU/L ALT (14-63) IU/L Alkaline Phosphatase (46-116) U/L Total Protein (6.4-8.2) g/dL Albumin (3.4-5.0) g/dL Globulin (2.6-4.0) g/dL Albumin/Globulin Ratio (0.9-1.6) 05/20/21 Range/Units 18:17 WBC (4.0-11.0) K/uL RBC (4.50-5.90) M/uL Hgb (13.0-17.0) g/dL Hct (38.0-50.0) % MCV (80.0-98.0) fL MCH (27.0-32.0) pg MCHC (31.0-37.0) g/dL RDW Std Deviation (28.0-62.0) fl RDW Coeff of Jackeline (11.0-15.0) % Plt Count (150-400) K/uL MPV (7.40-12.00) fL Neut % (Auto) (48.0-80.0) % Lymph % (Auto) (16.0-40.0) % [place] % (Auto) (0.0-15.0) % Eos % (Auto) (0.0-7.0) % Baso % (Auto) (0.0-1.5) % Neut # (Auto) (1.4-5.7) K/uL Lymph # (Auto) (0.6-2.4) K/uL [place] # (Auto) (0.0-0.8) K/uL Eos # (Auto) (0.0-0.7) K/uL Baso # (Auto) (0.0-0.1) K/uL Nucleated RBC % /100WBC Nucleated RBCs # K/uL INR Sodium 135 L (136-148) mmol/L Potassium 3.9 (3.5-5.1) mmol/L Chloride 100 (98-107) mmol/L Carbon Dioxide 26.0 (21.0-32.0) mmol/L BUN 18 (7.0-18.0) mg/dL Creatinine 0.8 (0.8-1.3) mg/dL Est Cr Clr Drug Dosing TNP Estimated GFR (MDRD) > 60.0 ml/min Glucose 137 H (74-106) mg/dL Lactic Acid (0.4-2.0) mmol/L Calcium 8.4 L (8.5-10.1) mg/dL Total Bilirubin 1.3 H (0.2-1.0) mg/dL AST 23 (15-37) IU/L ALT 31 (14-63) IU/L Alkaline Phosphatase 81 (46-116) U/L Total Protein 7.6 (6.4-8.2) g/dL Albumin 3.5 (3.4-5.0) g/dL Globulin 4.1 H (2.6-4.0) g/dL Albumin/Globulin Ratio 0.9 (0.9-1.6) Result Diagrams: 05/20/21 18:17 05/20/21 18:17 Sepsis Event Note - Evaluation Sepsis Screening Result: No Definite Risk - Focused Exam Vital Signs: Vital Signs Temp Temp Temp Pulse Resp BP Pulse Ox 05/20/21 18:56 90 16 165/89 H 97 05/20/21 18:20 38.5 C H 94 16 166/90 H 96 05/20/21 18:04 38.5 C H 05/20/21 16:57 37.8 C 37.7 C 98 16 178/92 H 96 - Problem List (1) Cholelithiasis SNOMED Code(s): 406050147 ICD Code: K80.20 - CALCULUS OF GALLBLADDER W/O CHOLECYSTITIS W/O OBSTRUCTION Status: Acute Current Visit: No Qualifiers: Cholelithiasis location: gallbladder Cholecystitis presence: with cholecystitis Cholecystitis acuity: acute Biliary obstruction: without biliary obstruction Qualified Code(s): K80.00 - Calculus of gallbladder with acute cholecystitis without obstruction (2) Cholecystitis SNOMED Code(s): 13889763 ICD Code: K81.9 - CHOLECYSTITIS, UNSPECIFIED Status: Acute Current Visit: Yes Problem List Initiated/Reviewed/Updated: Yes Orders Last 24hrs: Active Orders 24 hr Category Date Time Status Patient Status [ADT] Routine ADT 05/20/21 19:26 Ordered Antiembolic Devices [RC] PER UNIT ROUTINE Care 05/20/21 19:27 Ordered Intake and Output [RC] QSHIFT Care 05/20/21 19:27 Ordered Oxygen Therapy [RC] PRN Care 05/20/21 19:26 Ordered RT Incentive Spirometry [RC] Q1HWA Care 05/20/21 19:25 Ordered Up ad Ella [RC] ASDIRECTED Care 05/20/21 19:25 Ordered Vital Signs [RC] PER UNIT ROUTINE Care 05/20/21 19:26 Ordered NPO [Nothing Per Oral Diet] [DIET] Diet 05/21/21 Breakfast Active CBC WITH AUTO DIFF [HEME] AM Lab 05/21/21 05:11 Ordered COMPREHENSIVE METABOLIC PN,CMP [CHEM] AM Lab 05/21/21 05:11 Ordered CULTURE BLOOD [BC] Stat Lab 05/20/21 18:20 Received CULTURE BLOOD [BC] Stat Lab 05/20/21 18:27 Received GLYCOSYLATED HEMOGLOBIN,HGBA1C [CHEM] AM Lab 05/21/21 05:11 Ordered UA W/ANDRE RFLX IF INDICATED [URIN] Stat Lab 05/20/21 18:05 Ordered Acetaminophen [Ofirmev 1000 mg/100 ml] 1,000 mg Med 05/20/21 19:28 Ordered Premix Bag 1 bag IV Q6H HYDROmorphone [Dilaudid] Med 05/20/21 19:29 Ordered 0.5 mg IVPUSH Q1H PRN Lactated Ringers [Ringers, Lactated] 1,000 ml Med 05/20/21 19:15 Active IV ASDIRECTED Lactated Ringers [Ringers, Lactated] 1,000 ml Med 05/20/21 19:30 Ordered IV ASDIRECTED Ondansetron [Zofran] Med 05/20/21 19:29 Ordered 4 mg IVPUSH Q6H PRN Piperacillin/Tazobactam [Piperacil-Tazobact] 3.375 gm Med 05/20/21 19:30 Ordered Sodium Chloride 0.9% [Normal Saline AdvBag] 50 ml IV Q6H Scopolamine [Transderm-Scop] Med 05/20/21 19:30 Ordered 1.5 mg TRDERM Q72H Sodium Chloride 0.9% [Normal Saline] Med 05/20/21 19:25 Ordered 10 ml IV ASDIRECTED PRN Sodium Chloride 0.9% [Saline Flush] Med 05/20/21 19:25 Ordered 10 ml FLUSH ASDIRECTED PRN Sodium Chloride 0.9% [Saline Flush] Med 05/20/21 19:25 Ordered 2.5 ml FLUSH ASDIRECTED PRN diphenhydrAMINE [Benadryl] Med 05/20/21 19:29 Ordered 50 mg IVPUSH Q4H PRN Blood Culture x2 Reflex Set [OM.PC] Stat Oth 05/20/21 18:05 Ordered DVT Prophylaxis Not on Coumadin Therapy [AST] Routine Oth 05/20/21 19:27 Ordered Peripheral IV Insertion Adult [OM.PC] Urgent Oth 05/20/21 19:25 Ordered SCD [Sequential Compression Device] [OM.PC] Stat Oth 05/20/21 19:27 Ordered Resuscitation Status Routine Resus Stat 05/20/21 19:25 Ordered Medication Orders Diphenhydramine HCl (Diphenhydramine 50 Mg/Ml Sdv) 50 mg IVPUSH Q4H PRN PRN Reason: Itching Hydromorphone HCl (Hydromorphone 2 Mg/Ml Syringe) 0.5 mg IVPUSH Q1H PRN PRN Reason: Pain (severe 7-10) Lactated Ringer's (Ringers, Lactated) 1,000 mls @ 150 mls/hr IV ASDIRECTED CHENCHO Lactated Ringer's (Ringers, Lactated) 1,000 mls @ 150 mls/hr IV ASDIRECTED CHENCHO Piperacillin Sod/Tazobactam (Sod 3.375 gm/ Sodium Chloride) 50 mls @ 100 mls/hr IV Q6H CHENCHO Acetaminophen 1,000 mg/ Premix 100 mls @ 400 mls/hr IV Q6H PRN PRN Reason: Pain Ondansetron HCl (Ondansetron 4 Mg/2 Ml Sdv) 4 mg IVPUSH Q6H PRN PRN Reason: Nausea/Vomiting Scopolamine (Scopolamine 1.5 Mg Transdermal Patch) 1.5 mg TRDERM Q72H CHENCHO Sodium Chloride (Sodium Chloride 0.9% 10 Ml Syringe) 10 ml FLUSH ASDIRECTED PRN PRN Reason: Keep Vein Open Sodium Chloride (Sodium Chloride 0.9% 2.5 Ml Syringe) 2.5 ml FLUSH ASDIRECTED PRN PRN Reason: Keep Vein Open Sodium Chloride (Sodium Chloride 0.9% 20 Ml Sdv) 10 ml IV ASDIRECTED PRN PRN Reason: IV Use Assessment/Plan Comment:: The patient and I discussed the pathophysiology of biliary disease. We discussed what causes acute cholecystitis and the need for surgery. With his increased WBC and fever he could even have necrotic/gangrenous cholecystitis. We discussed the need for admission and resuscitation as well as surgery. I will admit him overnight. He will be npo except ice chips, IV LR @150ml/hr and IV zosyn 3.375 qhr. In the morning we will repeat labs. Likely we will perform surgery tomorrow. I discussed the laparoscopic possible open cholecystectomy procedures. If I cannot complete it safely laparoscopic I will convert to open. We discussed the expected post operative course for both procedures as well as the risks of surgery including bleeding infection bile leak or damage to surrounding structures. He verbalized understanding and wishes to proceed. He is Yarsanism and refuses all blood products. This was discussed and confirmed.
[2021-05-20] MEDS ORDERED: HYDROmorphone 1 MG/ML Syringe ONE (19:46)
[2021-05-20] MEDS ORDERED: HYDROmorphone 1 MG/ML Syringe IVPUSH ONE (20:31)
[2021-05-20] MEDS: Lactated Ringers 1,000 ML IV SCH (20:41)
[2021-05-20] MEDS: Acetaminophen 1,000 MG in Premix Bag 1 BAG IV SCH (22:36)
[2021-05-20] MEDS: Piperacillin/Tazobactam 3.375 GM in Sodium Chloride 0.9% 50 ML IV SCH (22:58)
[2021-05-21] MEDS: HYDROmorphone 2 MG/ML Syringe IVPUSH PRN ×2 (02:15→08:20)
[2021-05-21] MEDS: Acetaminophen 1,000 MG in Premix Bag 1 BAG IV SCH (04:43)
[2021-05-21] MEDS: Piperacillin/Tazobactam 3.375 GM in Sodium Chloride 0.9% 50 ML IV SCH (05:10)
[2021-05-21 07:03] LABS: BLOOD UREA NITROGEN,BUN 14 mg/dL (7.0-18.0); CARBON DIOXIDE,CO2 26.4 mmol/L (21.0-32.0); CHLORIDE,CL 102 mmol/L (98-107); GLUCOSE RANDOM 120 mg/dL (74-106); POTASSIUM,K 4.3 mmol/L (3.5-5.1); SODIUM,NA 138 mmol/L (136-148)
[2021-05-21] MEDS ORDERED: Dexamethasone 4 MG/ML 5 ML MDV ONE (09:16)
[2021-05-21] MEDS ORDERED: Lidocaine 2% 5 ML SDV ONE (09:16)
[2021-05-21] MEDS ORDERED: Propofol 200 MG/20 ML SDV ONE (09:16)
[2021-05-21] MEDS ORDERED: Dexmedetomidine 200 MCG/2 ML SDV ONE (09:16)
[2021-05-21] MEDS ORDERED: Rocuronium Bromide 50 MG/5 ML Syringe ONE ×2 (09:16→10:28)
[2021-05-21] MEDS ORDERED: fentaNYL 100 MCG/2 ML SDV ONE ×2 (09:17→12:09)
[2021-05-21] MEDS ORDERED: Sodium Chloride 0.9% 20 ML ONE (09:20)
[2021-05-21] MEDS ORDERED: Bupivacaine 0.5% 30 ML SDV ONE (09:21)
[2021-05-21] MEDS ORDERED: Octyl 2-Cyanoacrylate 1 Tube ONE (09:21)
[2021-05-21] MEDS ORDERED: Midazolam 1 MG/ML 2 ML SDV ONE (09:23)
--- NOTE | 2021-05-21 09:28 | PCM.PREANE ---
Preanesthetic Assessment - Anesthesia/Transfusion/Family Hx Anesthesia History: Prior Anesthesia Without Reaction Family History of Anesthesia Reaction: No Transfusion History: No Prior Transfusion(s) - Review of Systems General: No Symptoms Pulmonary: No Symptoms Cardiovascular: No Symptoms Gastrointestinal: No Symptoms Neurological: No Symptoms Other: Reports: None - Physical Assessment NPO Status Date: 05/20/21 NPO Status Time: 00:00 Vital Signs: Last Vital Signs Temp 36.3 C 05/21/21 05:00 Pulse 93 05/21/21 05:00 Resp 16 05/21/21 05:00 BP 159/82 H 05/21/21 05:00 Pulse Ox 96 05/21/21 05:00 Height: 5 ft 8 in Weight: 125.01 kg ASA Class: 2E Mental Status: Alert & Oriented x3 Airway Class: Mallampati = 3 Dentition: Reports: Normal Dentition ROM/Head Extension: Full Lungs: Clear to Auscultation, Normal Respiratory Effort Cardiovascular: Regular Rate, Regular Rhythm - Lab Values: Laboratory Last Values WBC 13.56 K/uL (4.0-11.0) H 05/21/21 05:36 RBC 4.75 M/uL (4.50-5.90) 05/21/21 05:36 Hgb 14.3 g/dL (13.0-17.0) 05/21/21 05:36 Hct 41.2 % (38.0-50.0) 05/21/21 05:36 MCV 86.7 fL (80.0-98.0) 05/21/21 05:36 MCH 30.1 pg (27.0-32.0) 05/21/21 05:36 MCHC 34.7 g/dL (31.0-37.0) 05/21/21 05:36 RDW Std Deviation 41.0 fl (28.0-62.0) 05/21/21 05:36 RDW Coeff of Jackeline 13 % (11.0-15.0) 05/21/21 05:36 Plt Count 182 K/uL (150-400) 05/21/21 05:36 MPV 9.70 fL (7.40-12.00) 05/21/21 05:36 Neut % (Auto) 87.0 % (48.0-80.0) H 05/21/21 05:36 Lymph % (Auto) 6.3 % (16.0-40.0) L 05/21/21 05:36 Morgan % (Auto) 6.5 % (0.0-15.0) 05/21/21 05:36 Eos % (Auto) 0.1 % (0.0-7.0) 05/21/21 05:36 Baso % (Auto) 0.1 % (0.0-1.5) 05/21/21 05:36 Neut # (Auto) 11.8 K/uL (1.4-5.7) H 05/21/21 05:36 Lymph # (Auto) 0.9 K/uL (0.6-2.4) 05/21/21 05:36 Morgan # (Auto) 0.9 K/uL (0.0-0.8) H 05/21/21 05:36 Eos # (Auto) 0.0 K/uL (0.0-0.7) 05/21/21 05:36 Baso # (Auto) 0.0 K/uL (0.0-0.1) 05/21/21 05:36 Nucleated RBC % 0.0 /100WBC 05/21/21 05:36 Nucleated RBCs # 0 K/uL 05/21/21 05:36 INR 1.10 05/20/21 18:17 Sodium 138 mmol/L (136-148) 05/21/21 05:36 Potassium 4.3 mmol/L (3.5-5.1) 05/21/21 05:36 Chloride 102 mmol/L (98-107) 05/21/21 05:36 Carbon Dioxide 26.4 mmol/L (21.0-32.0) 05/21/21 05:36 BUN 14 mg/dL (7.0-18.0) 05/21/21 05:36 Creatinine 0.8 mg/dL (0.8-1.3) 05/21/21 05:36 Est Cr Clr Drug Dosing 110.44 mL/min 05/21/21 05:36 Estimated GFR (MDRD) > 60.0 ml/min 05/21/21 05:36 Glucose 120 mg/dL (74-106) H 05/21/21 05:36 Hemoglobin A1c 5.0 % (4.5-6.2) 05/21/21 05:36 Lactic Acid 0.8 mmol/L (0.4-2.0) 05/20/21 18:17 Calcium 8.1 mg/dL (8.5-10.1) L 05/21/21 05:36 Total Bilirubin 1.5 mg/dL (0.2-1.0) H 05/21/21 05:36 AST 22 IU/L (15-37) 05/21/21 05:36 ALT 29 IU/L (14-63) 05/21/21 05:36 Alkaline Phosphatase 75 U/L (46-116) 05/21/21 05:36 Total Protein 6.4 g/dL (6.4-8.2) 05/21/21 05:36 Albumin 3.1 g/dL (3.4-5.0) L 05/21/21 05:36 Globulin 3.3 g/dL (2.6-4.0) 05/21/21 05:36 Albumin/Globulin Ratio 0.9 (0.9-1.6) 05/21/21 05:36 Urine Color YELLOW 05/20/21 23:10 Urine Appearance CLEAR 05/20/21 23:10 Urine pH 7.0 (5.0-8.0) 05/20/21 23:10 Ur Specific [place] 1.020 (1.001-1.035) 05/20/21 23:10 Urine Protein NEGATIVE mg/dL (NEGATIVE) 05/20/21 23:10 Urine Glucose (UA) NEGATIVE mg/dL (NEGATIVE) 05/20/21 23:10 Urine Ketones 15 mg/dL (NEGATIVE) H 05/20/21 23:10 Urine Occult Blood TRACE-INTACT (NEGATIVE) H 05/20/21 23:10 Urine Nitrite NEGATIVE (NEGATIVE) 05/20/21 23:10 Urine Bilirubin NEGATIVE (NEGATIVE) 05/20/21 23:10 Urine Urobilinogen 1.0 EU/dL (<2.0) 05/20/21 23:10 Ur Leukocyte Esterase NEGATIVE (NEGATIVE) 05/20/21 23:10 Urine RBC 0-2 (0-2/HPF) 05/20/21 23:10 Urine WBC 0-1 (0-5/HPF) 05/20/21 23:10 Ur Epithelial Cells RARE (NONE-FEW) 05/20/21 23:10 Urine Bacteria FEW (NEGATIVE) 05/20/21 23:10 - Allergies Allergies/Adverse Reactions: Allergies Allergy/AdvReac Type Severity Reaction Status Date / Time No Known Allergies Allergy Verified 05/20/21 16:57 - Acknowledgements Anesthesia Type Planned: General Anesthesia Pt an Appropriate Candidate for the Planned Anesthesia: Yes Alternatives and Risks of Anesthesia Discussed w Pt/Guardian: Yes Pt/Guardian Understands and Agrees with Anesthesia Plan: Yes PreAnesthesia Questionnaire HEENT History: Reports: None Cardiovascular History: Reports: None Respiratory History: Reports: None Gastrointestinal History: Reports: GERD Musculoskeletal History: Reports: None Neurological History: Reports: None Psychiatric History: Reports: None Endocrine/Metabolic History: Reports: None Hematologic History: Reports: None Immunologic History: Reports: None Oncologic (Cancer) History: Reports: None Dermatologic History: Reports: None - Infectious Disease History Infectious Disease History: Reports: Chicken Pox - Past Surgical History Head Surgeries/Procedures: Reports: None HEENT Surgical History: Reports: None GI Surgical History: Reports: Bariatric Procedure Male Surgical History: Reports: None Endocrine Surgical History: Reports: None Neurological Surgical History: Reports: None Musculoskeletal Surgical History: Reports: None Oncologic Surgical History: Reports: None Dermatological Surgical History: Reports: None - SUBSTANCE USE Tobacco Use Status *Q: Never Tobacco User Tobacco Use Within Last Twelve Months: No Recreational Drug Use History: No - HOME MEDS Home Medications: Home Meds Omeprazole 40 mg PO DAILY #30 capsule. 05/20/21 [Rx] - CURRENT (IN HOUSE) MEDS Current Meds: Current Medications Diphenhydramine HCl (Diphenhydramine 50 Mg/Ml Sdv) 50 mg IVPUSH Q4H PRN PRN Reason: Itching Hydromorphone HCl (Hydromorphone 2 Mg/Ml Syringe) 0.5 mg IVPUSH Q1H PRN PRN Reason: Pain (severe 7-10) Last Admin: 05/21/21 08:20 Dose: 0.5 mg Documented by: Lactated Ringer's (Ringers, Lactated) 1,000 mls @ 150 mls/hr IV ASDIRECTED CHENCHO Last Admin: 05/20/21 20:41 Dose: 150 mls/hr Documented by: Lactated Ringer's (Ringers, Lactated) 1,000 mls @ 150 mls/hr IV ASDIRECTED CHENCHO Last Admin: 05/21/21 04:36 Dose: 150 mls/hr Documented by: Acetaminophen 1,000 mg/ Premix 100 mls @ 400 mls/hr IV ONETIME PRN PRN Reason: PAIN Piperacillin Sod/Tazobactam (Sod 3.375 gm/ Sodium Chloride) 50 mls @ 100 mls/hr IV Q6H [facility] Ondansetron HCl (Ondansetron 4 Mg/2 Ml Sdv) 4 mg IVPUSH Q6H PRN PRN Reason: Nausea/Vomiting Scopolamine (Scopolamine 1.5 Mg Transdermal Patch) 1.5 mg TRDERM Q72H [facility] Last Admin: 05/20/21 22:36 Dose: 1.5 mg Documented by: Sodium Chloride (Sodium Chloride 0.9% 10 Ml Syringe) 10 ml FLUSH ASDIRECTED PRN PRN Reason: Keep Vein Open Sodium Chloride (Sodium Chloride 0.9% 2.5 Ml Syringe) 2.5 ml FLUSH ASDIRECTED PRN PRN Reason: Keep Vein Open Sodium Chloride (Sodium Chloride 0.9% 20 Ml Sdv) 10 ml IV ASDIRECTED PRN PRN Reason: IV Use Discontinued Medications Bupivacaine HCl (Bupivacaine 0.5% 30 Ml Sdv) Confirm Administered Dose 30 ml .ROUTE .STK-MED ONE Stop: 05/21/21 09:22 Dexamethasone (Dexamethasone 4 Mg/Ml 5 Ml Mdv) Confirm Administered Dose 20 mg .ROUTE .STK-MED ONE Stop: 05/21/21 09:17 Dexmedetomidine HCl (Dexmedetomidine 200 Mcg/2 Ml Sdv) Confirm Administered Dose 200 mcg .ROUTE .STK-MED ONE Stop: 05/21/21 09:17 Fentanyl (Fentanyl 50 Mcg/Ml Sdv) 50 mcg IVPUSH ONETIME ONE Stop: 05/20/21 17:58 Last Admin: 05/20/21 18:23 Dose: 50 mcg Documented by: Fentanyl (Fentanyl 100 Mcg/2 Ml Sdv) Confirm Administered Dose 100 mcg .ROUTE .STK-MED ONE Stop: 05/21/21 09:18 Hydromorphone HCl (Hydromorphone 1 Mg/Ml Syringe) Confirm Administered Dose 1 mg .ROUTE .STK-MED ONE Stop: 05/20/21 19:47 Last Admin: 05/20/21 20:00 Dose: Not Given Documented by: Hydromorphone HCl (Hydromorphone 1 Mg/Ml Syringe) 0.5 mg IVPUSH ONETIME ONE Stop: 05/20/21 20:32 Last Admin: 05/20/21 20:40 Dose: 0.5 mg Documented by: Lactated Ringer's (Ringers, Lactated) 1,000 mls @ 999 mls/hr IV .BOLUS ONE Stop: 05/20/21 18:49 Last Admin: 05/20/21 18:28 Dose: 999 mls/hr Documented by: Ceftriaxone Sodium/Dextrose 1 (gm/ Premix) 50 mls @ 100 mls/hr IV ONETIME ONE Stop: 05/20/21 18:34 Last Admin: 05/20/21 18:25 Dose: 100 mls/hr Documented by: Piperacillin Sod/Tazobactam (Sod 3.375 gm/ Sodium Chloride) 50 mls @ 100 mls/hr IV Q6H [facility] Last Admin: 05/21/21 05:10 Dose: 100 mls/hr Documented by: Acetaminophen 1,000 mg/ Premix 100 mls @ 400 mls/hr IV Q6H PRN PRN Reason: Pain (mild 1-3) Acetaminophen 1,000 mg/ Premix 100 mls @ 400 mls/hr IV Q6H [facility] Last Admin: 05/21/21 04:43 Dose: 400 mls/hr Documented by: Sodium Chloride (Normal Saline) Confirm Administered Dose 20 mls @ as directed .ROUTE .STK-MED ONE Stop: 05/21/21 09:21 Lidocaine (Lidocaine 2% 5 Ml Sdv) Confirm Administered Dose 5 ml .ROUTE .STK-MED ONE Stop: 05/21/21 09:17 Midazolam HCl (Midazolam 1 Mg/Ml 2 Ml Sdv) Confirm Administered Dose 2 mg .ROUTE .STK-MED ONE Stop: 05/21/21 09:24 Octyl Cyanoacrylate (Octyl 2-Cyanoacrylate 1 Tube) Confirm Administered Dose 1 applic .ROUTE .STK-MED ONE Stop: 05/21/21 09:22 Propofol (Propofol 200 Mg/20 Ml Sdv) Confirm Administered Dose 200 mg .ROUTE .STK-MED ONE Stop: 05/21/21 09:17 Rocuronium [place] (Rocuronium [place] 50 Mg/5 Ml Syringe) Confirm Administered Dose 50 mg .ROUTE .STK-MED ONE Stop: 05/21/21 09:17
[2021-05-21] MEDS ORDERED: Acetaminophen 1,000 MG in Premix Bag 1 BAG IV PRN (11:00)
[2021-05-21] MEDS ORDERED: Naloxone 0.4 MG/ML SDV IVPUSH PRN (11:16)
[2021-05-21] MEDS ORDERED: Morphine 2 MG/ML SYRINGE IVPUSH PRN (11:16)
[2021-05-21] MEDS ORDERED: Albuterol 0.083% 2.5 MG/3 ML Neb Soln NEB PRN (11:16)
[2021-05-21] MEDS ORDERED: HYDROmorphone 1 MG/ML Syringe IVPUSH PRN (11:16)
[2021-05-21] MEDS ORDERED: fentaNYL 100 MCG/2 ML SDV IVPUSH PRN (11:16)
[2021-05-21] MEDS ORDERED: Ondansetron 4 MG/2 ML SDV IVPUSH PRN (11:16)
[2021-05-21] MEDS ORDERED: Metoclopramide 10 MG/2 ML SDV IVPUSH PRN (11:16)
[2021-05-21] MEDS ORDERED: Sugammadex Sodium 200 MG/2 ML VIAL ONE (11:38)
[2021-05-21] MEDS ORDERED: Ondansetron 4 MG/2 ML SDV ONE (11:38)
[2021-05-21] MEDS ORDERED: Piperacillin/Tazobactam 3.375 GM in Sodium Chloride 0.9% 50 ML IV SCH (12:00)
[2021-05-21] MEDS ORDERED: ceFAZolin 1 GM Vial ONE (12:16)
[2021-05-21] MEDS: Piperacillin/Tazobactam 3.375 GM in Sodium Chloride 0.9% 100 ML IV SCH ×2 (12:30→17:06)
--- NOTE | 2021-05-21 13:14 | PCM.OPNOTE ---
- General Post-Op/Procedure Note Date of Surgery/Procedure: 05/21/21 Operative Procedure(s): Laparoscopic cholecystectomy Findings: Multiple gallstones in an inflamed, distended and necrotic gallbladder. Pre Op Diagnosis: Acute cholecystitis Post-Op Diagnosis: Gangrenous cholecystitis Anesthesia Technique: General ET Tube Primary Surgeon: Dorothy Maurice Fluid Replacement, Intraop: 750 Output, Urine Amount: 175 EBL in mLs: 10 Condition: Stable Free Text/Narrative:: Intake & Output 05/20/21 05/21/21 05/21/21 22:59 06:59 14:59 Output Total 600 300 Balance -600 -300
[2021-05-21] MEDS ORDERED: Acetaminophen/oxyCODONE 325-5 MG Tab PO PRN (13:19)
--- NOTE | 2021-05-21 13:20 | PCM.POSTAN ---
POST ANESTHESIA ASSESSMENT - MENTAL STATUS Mental Status: Alert, Oriented - VITAL SIGNS Vital Signs: Last Vital Signs Temp 36.5 C 05/21/21 13:00 Pulse 74 05/21/21 13:15 Resp 23 H 05/21/21 13:15 BP 114/66 05/21/21 13:15 Pulse Ox 98 05/21/21 13:15 - RESPIRATORY Respiratory Status: Respiratory Rate WNL, Airway Patent, O2 Saturation Stable - CARDIOVASCULAR CV Status: Pulse Rate WNL, Blood Pressure Stable - GASTROINTESTINAL GI Status: No Symptoms - POST OP HYDRATION Hydration Status: Adequate & Stable
[2021-05-21] MEDS: Lactated Ringers 1,000 ML IV SCH (13:37)
--- NOTE | 2021-05-21 13:39 | PCM48HPAN ---
Post Anesthesia Note - EVALUATION WITHIN 48HRS OF ANESTHETIC Vital Signs in Normal Range: Yes Patient Participated in Evaluation: Yes Respiratory Function Stable: Yes Airway Patent: Yes Cardiovascular Function Stable: Yes Hydration Status Stable: Yes Pain Control Satisfactory: Yes Nausea and Vomiting Control Satisfactory: Yes Mental Status Recovered: Yes Vital Signs: Last Vital Signs Temp 36.5 C 05/21/21 13:00 Pulse 73 05/21/21 13:35 Resp 20 05/21/21 13:35 BP 116/68 05/21/21 13:35 Pulse Ox 93 L 05/21/21 13:35
--- NOTE | 2021-05-21 14:24 | OR ---
SURGEON: ODROTHY TAMAYO MD DATE OF PROCEDURE: 05/20/2021 PREOPERATIVE DIAGNOSIS: Acute cholecystitis. POSTOPERATIVE DIAGNOSIS: Gangrenous cholecystitis. PROCEDURE PERFORMED: Laparoscopic cholecystectomy. PRIMARY SURGEON: Dorothy Tamayo MD ANESTHESIA: General endotracheal anesthesia. FLUIDS: 750 mL crystalloid. ESTIMATED BLOOD LOSS: 10 mL. URINE OUTPUT: 175 mL. COMPLICATIONS: None. FINDINGS: Distended, partially necrotic gallbladder full of stones. INDICATIONS: The patient is a 45-year-old male who presented to the ER with abdominal pain. Workup revealed questionable acute cholecystitis. The patient was admitted overnight and resuscitated with fluids, given IV antibiotics and kept n.p.o. This morning, we discussed the need for laparoscopic, possible open cholecystectomy. I explained the procedure, expected perioperative course, and risks. He verbalized understanding and wishes to proceed. PROCEDURE IN DETAIL: The patient was brought into the OR and placed on the OR table in supine position. A time-out was completed verifying the patient's name, age, date of , allergies, and procedure to be performed. General endotracheal anesthesia was induced. The left arm was tucked the patient's side and a Carreno catheter placed. The abdomen was prepped and draped in the usual standard fashion. I anesthetized the supraumbilical midline with 0.5% Marcaine plain. An 11 blade was used to make an incision down the supraumbilical midline. I bluntly dissected down to the fascia. The fascia was elevated with Kochers and incised sharply with a curved Moon scissors. I grasped the peritoneum with hemostats. This was elevated and incised sharply. Entry into the abdomen was palpated digitally. Sutures were placed on either side of the fascia with 0 Vicryl sutures. A 12 mm Abbie trocar was inserted into the abdomen. The abdomen was insufflated. The patient was placed into reverse Trendelenburg position and airplaned slightly to the left. 5 mm trocars were placed following locations under direct visualization; one in the epigastric area, one in the right flank, and one two fingerbreadths below the right subcostal margin in the midclavicular line. I could see that the gallbladder was distended. I swept the omentum away from the gallbladder. The gallbladder was noted to be partially necrotic. An aspirating needle was brought through the right flank port and greater than 100 mL of green bile was aspirated from the gallbladder itself. Some of the bile was sent to Pathology for anaerobic and aerobic cultures and Gram stain. I then grasped the dome of the gallbladder and elevated it cranially. The patient had thickened and inflamed fat along the infundibulum, however, this was able to be easily pulled away with simple suction. Using this method, I was able to identify the cystic duct and artery. Indocyanine green had been given. Using this dye, I was able to identify the cystic duct. I cleared away all the surrounding tissue from around the cystic duct. I could see a pulsatile structure that looked like the artery. I cleared away all the tissue from around this. A bolus of Indocyanine green was given and I could see the artery pulsing with dye. I then cleared away some of the cystic plate, then doubly clipped and ligated my cystic duct and artery. Hooked suction was used to then peel the gallbladder away from the cystic plate. While doing this, a rent was made in the back wall of the gallbladder and bile and stones were spilled into the abdomen. Once the gallbladder was removed from the liver bed, it was placed in an EndoCatch bag. I attempted to pull it out through the supraumbilical port site. There were large stones in the gallbladder and so I had to extend my fascial incision in order to pull the gallbladder out of the abdomen. Once I did this, the specimen was passed off the field and sent to Pathology labeled as gallbladder. The 12 mm trocar was placed back in the abdomen and I insufflated it. The gallstones were swept into a second EndoCatch bag and removed through the port site again. I irrigated the abdomen with normal saline Ancef solution and irrigated until the fluid was clear. All stones were removed. I inspected my operative field. It appeared to be hemostatic with no evidence of bile leakage. A photograph was taken. The 5 mm trocars were removed under direct visualization and the abdomen was allowed to desufflate. The 12 mm trocar was removed as well. The fascia at the supraumbilical port site was closed with interrupted [id number] Vicryl sutures. The subcutaneous fat was closed with interrupted 3-0 Vicryl sutures. The skin was closed with carroll. The skin at the 5 mm trocar sites were closed with carroll. Sterile dressings were applied. The patient tolerated the procedure well, was extubated, and taken to PACU in stable condition. All counts were complete and correct at the end of the case. MARIS RIOS /[id number] MTDD
[2021-05-21] MEDS: oxyCODONE 5 MG Tab PO PRN (19:27)
[2021-05-22] MEDS: Piperacillin/Tazobactam 3.375 GM in Sodium Chloride 0.9% 100 ML IV SCH ×2 (00:03→05:12)
[2021-05-22] MEDS: oxyCODONE 5 MG Tab PO PRN (09:25)
--- NOTE | 2021-05-22 09:29 | PCM.DCSUM1 ---
Discharge Summary - Hospital Course Free Text/Narrative:: Patient is a 45 year old male who presented to the ER with abdominal pain. He was febrile and had an elevated WBC. He had been evaluated earlier in the day and sent home. CT scan showed multiple gallstones in a hydropic gallbladder. US showed a thickened and enflamed gallbladder. He was admitted to the floor. He was given IV fluids, IV zosyn, scheduled IV tylenol and by the next morning was afebrile and feeling much better. His WBC went from 16K to 13K. I consented him for surgery. He underwent a laparscopic cholecysteectomy. He was noted to have a gangrenous and partially necrotic gallbladder full of stones. It did not perforate. I was able to identify the critical view and clip across the artery and cystic duct safely. The gallbladder was able to be taken off the cystic plate but bile and stones were spilled in the abdomen. These were collected and the abdomen was washed out copiously with ancef NS solution. He tolerated the procedure well. The post operative period was uneventful. His pain was well controlled with oral pain medication. He was kept on scheduled tylenol IV because it controlled his pain well and prevented fevers post operatively. He ambulated and urinated. he tolerated a regular diet. This am his incisions appear dry and intact. He will be transitioned to oral antibiotics. He is cleared for discharge home. - Discharge Data Discharge Date: 05/22/21 Discharge Disposition: Home, Self-Care 01 Condition: Stable - Referral to Home Health Primary Care Physician: Isaías Bynum MD - Discharge Diagnosis/Problem(s) (1) Cholelithiasis SNOMED Code(s): 132965712 ICD Code: K80.20 - CALCULUS OF GALLBLADDER W/O CHOLECYSTITIS W/O OBSTRUCTION Status: Deleted Current Visit: No Qualifiers: Cholelithiasis location: gallbladder Cholecystitis presence: with cholecystitis Cholecystitis acuity: acute Biliary obstruction: without biliary obstruction Qualified Code(s): K80.00 - Calculus of gallbladder with acute cholecystitis without obstruction (2) Cholecystitis SNOMED Code(s): 94623162 ICD Code: K81.9 - CHOLECYSTITIS, UNSPECIFIED Status: Acute Current Visit: Yes - Patient Summary/Data Operative Procedure(s) Performed: Laparoscopic cholecystectomy - Patient Instructions Diet: Regular Diet as Tolerated Diet, Other: Avoid greasy food for one month Activity: No Lifting Over 20 Pounds (for 4 weeks ), Rest and Relax Today Driving: Do Not Drive (for one week ) Showering/Bathing: No Showering (until tomorrow morning ), No Tub Bathing/Swimming (for 2 weeks ) Wound/Incision Care: Keep Operative Site/Wound Site Clean and Dry Wound/Incision, Other: Remove dressings tomorrow and ok to shower after that. Notify Provider of: Fever, Increased Pain, Swelling and Redness, Drainage, Nausea and/or Vomiting - Discharge Plan *PRESCRIPTION DRUG MONITORING PROGRAM REVIEWED*: Yes *COPY OF PRESCRIPTION DRUG MONITORING REPORT IN PATIENT KELLY: Yes Home Medications: Home Meds Omeprazole 40 mg PO DAILY #30 capsule. 05/20/21 [Rx] Forms: ED Department Discharge Referrals: Isaías Bynum MD [Primary Care Provider] - - Discharge Summary/Plan Comment DC Time >30 min.: No Total # of Minutes for Discharge Time: 25 - General Info Date of Service: 05/22/21 Functional Status: Reports: Pain Controlled, Tolerating Diet, Ambulating, Urinating. Denies: New Symptoms - Review of Systems General: Reports: No Symptoms HEENT: Reports: No Symptoms Pulmonary: Reports: No Symptoms Cardiovascular: Reports: No Symptoms Gastrointestinal: Reports: No Symptoms Musculoskeletal: Reports: No Symptoms - Patient Data Vitals - Most Recent: Last Vital Signs Temp 36.3 C 05/22/21 03:00 Pulse 61 05/22/21 03:00 Resp 16 05/22/21 03:00 BP 122/72 05/22/21 03:00 Pulse Ox 97 05/22/21 03:00 Weight - Most Recent: 125.01 kg I&O - Last 24 hours: Intake & Output 05/21/21 05/22/21 05/22/21 22:59 06:59 14:59 Intake Total 200 1000 Output Total 1230 2500 Balance -1030 -1500 Lab Results - Last 24 hrs: Laboratory Results - last 24 hr 05/22/21 Range/Units 05:54 WBC 12.71 H (4.0-11.0) K/uL RBC 4.18 L (4.50-5.90) M/uL Hgb 12.6 L (13.0-17.0) g/dL Hct 36.6 L (38.0-50.0) % MCV 87.6 (80.0-98.0) fL MCH 30.1 (27.0-32.0) pg MCHC 34.4 (31.0-37.0) g/dL RDW Std Deviation 40.9 (28.0-62.0) fl RDW Coeff of Jackeline 13 (11.0-15.0) % Plt Count 155 (150-400) K/uL MPV 11.10 (7.40-12.00) fL Nucleated RBC % 0.0 /100WBC Nucleated RBCs # 0 K/uL ANDRE Results - Last 24 hrs: Microbiology 05/20/21 18:20 Aerobic Blood Culture - Preliminary Blood - Venous NO GROWTH AFTER 1 DAY Anaerobic Blood Culture - Preliminary NO GROWTH AFTER 1 DAY 05/20/21 18:27 Aerobic Blood Culture - Preliminary Blood - Venous - Lab Draw NO GROWTH AFTER 1 DAY Anaerobic Blood Culture - Preliminary NO GROWTH AFTER 1 DAY Med Orders - Current: Current Medications Albuterol (Albuterol 0.083% 2.5 Mg/3 Ml Neb Soln) 2.5 mg NEB ONETIME PRN PRN Reason: Wheezing Diphenhydramine HCl (Diphenhydramine 50 Mg/Ml Sdv) 50 mg IVPUSH Q4H PRN PRN Reason: Itching Last Admin: 05/22/21 05:12 Dose: 50 mg Documented by: Droperidol (Droperidol 5 Mg/2 Ml Sdv) 0.625 mg IVPUSH ONETIME PRN PRN Reason: Nausea/Vomiting Fentanyl (Fentanyl 100 Mcg/2 Ml Sdv) 50 mcg IVPUSH Q5M PRN PRN Reason: Pain (mild 1-3) Hydromorphone HCl (Hydromorphone 2 Mg/Ml Syringe) 0.5 mg IVPUSH Q1H PRN PRN Reason: Pain (severe 7-10) Last Admin: 05/21/21 08:20 Dose: 0.5 mg Documented by: Hydromorphone HCl (Hydromorphone 1 Mg/Ml Syringe) 1 mg IVPUSH Q10M PRN PRN Reason: Pain (moderate 4-6) Lactated Ringer's (Ringers, Lactated) 1,000 mls @ 150 mls/hr IV ASDIRECTED [facility] Last Admin: 05/21/21 13:37 Dose: 150 mls/hr Documented by: Lactated Ringer's (Ringers, Lactated) 1,000 mls @ 150 mls/hr IV ASDIRECTED [facility] Last Admin: 05/21/21 04:36 Dose: 150 mls/hr Documented by: Acetaminophen 1,000 mg/ Premix 100 mls @ 400 mls/hr IV ONETIME PRN PRN Reason: PAIN Last Admin: 05/21/21 12:00 Dose: 400 mls/hr Documented by: Piperacillin Sod/Tazobactam (Sod 3.375 gm/ Sodium Chloride) 100 mls @ 200 mls/hr IV Q6H [facility] Last Admin: 05/22/21 05:12 Dose: 200 mls/hr Documented by: Metoclopramide HCl (Metoclopramide 10 Mg/2 Ml Sdv) 10 mg IVPUSH ONETIME PRN PRN Reason: Nausea/Vomiting Morphine Sulfate (Morphine 2 Mg/Ml Syringe) 2 mg IVPUSH Q10M PRN PRN Reason: Pain (severe 7-10) Naloxone HCl (Naloxone 0.4 Mg/Ml Sdv) 0.1 mg IVPUSH ASDIRECTED PRN PRN Reason: Respiratory Depression Ondansetron HCl (Ondansetron 4 Mg/2 Ml Sdv) 4 mg IVPUSH Q6H PRN PRN Reason: Nausea/Vomiting Ondansetron HCl (Ondansetron 4 Mg/2 Ml Sdv) 4 mg IVPUSH ONETIME PRN PRN Reason: Nausea/Vomiting Oxycodone HCl (Oxycodone 5 Mg Tab) 10 mg PO Q4H PRN PRN Reason: Pain Last Admin: 05/21/21 19:27 Dose: 10 mg Documented by: Scopolamine (Scopolamine 1.5 Mg Transdermal Patch) 1.5 mg TRDERM Q72H [facility] Last Admin: 05/20/21 22:36 Dose: 1.5 mg Documented by: Sodium Chloride (Sodium Chloride 0.9% 10 Ml Syringe) 10 ml FLUSH ASDIRECTED PRN PRN Reason: Keep Vein Open Sodium Chloride (Sodium Chloride 0.9% 2.5 Ml Syringe) 2.5 ml FLUSH ASDIRECTED PRN PRN Reason: Keep Vein Open Sodium Chloride (Sodium Chloride 0.9% 20 Ml Sdv) 10 ml IV ASDIRECTED PRN PRN Reason: IV Use Discontinued Medications Bupivacaine HCl (Bupivacaine 0.5% 30 Ml Sdv) Confirm Administered Dose 30 ml .ROUTE .STK-MED ONE Stop: 05/21/21 09:22 Cefazolin Sodium (Cefazolin 1 Gm Vial) Confirm Administered Dose 1 gm .ROUTE .STK-MED ONE Stop: 05/21/21 12:17 Dexamethasone (Dexamethasone 4 Mg/Ml 5 Ml Mdv) Confirm Administered Dose 20 mg .ROUTE .STK-MED ONE Stop: 05/21/21 09:17 Dexmedetomidine HCl (Dexmedetomidine 200 Mcg/2 Ml Sdv) Confirm Administered Dose 200 mcg .ROUTE .STK-MED ONE Stop: 05/21/21 09:17 Fentanyl (Fentanyl 50 Mcg/Ml Sdv) 50 mcg IVPUSH ONETIME ONE Stop: 05/20/21 17:58 Last Admin: 05/20/21 18:23 Dose: 50 mcg Documented by: Fentanyl (Fentanyl 100 Mcg/2 Ml Sdv) Confirm Administered Dose 100 mcg .ROUTE .STK-MED ONE Stop: 05/21/21 09:18 Fentanyl (Fentanyl 100 Mcg/2 Ml Sdv) Confirm Administered Dose 100 mcg .ROUTE .STK-MED ONE Stop: 05/21/21 12:10 Hydromorphone HCl (Hydromorphone 1 Mg/Ml Syringe) Confirm Administered Dose 1 mg .ROUTE .STK-MED ONE Stop: 05/20/21 19:47 Last Admin: 05/20/21 20:00 Dose: Not Given Documented by: Hydromorphone HCl (Hydromorphone 1 Mg/Ml Syringe) 0.5 mg IVPUSH ONETIME ONE Stop: 05/20/21 20:32 Last Admin: 05/20/21 20:40 Dose: 0.5 mg Documented by: Lactated Ringer's (Ringers, Lactated) 1,000 mls @ 999 mls/hr IV .BOLUS ONE Stop: 05/20/21 18:49 Last Admin: 05/20/21 18:28 Dose: 999 mls/hr Documented by: Ceftriaxone Sodium/Dextrose 1 (gm/ Premix) 50 mls @ 100 mls/hr IV ONETIME ONE Stop: 05/20/21 18:34 Last Admin: 05/20/21 18:25 Dose: 100 mls/hr Documented by: Piperacillin Sod/Tazobactam (Sod 3.375 gm/ Sodium Chloride) 50 mls @ 100 mls/hr IV Q6H [facility] Last Admin: 05/21/21 05:10 Dose: 100 mls/hr Documented by: Acetaminophen 1,000 mg/ Premix 100 mls @ 400 mls/hr IV Q6H PRN PRN Reason: Pain (mild 1-3) Acetaminophen 1,000 mg/ Premix 100 mls @ 400 mls/hr IV Q6H [facility] Last Admin: 05/21/21 04:43 Dose: 400 mls/hr Documented by: Piperacillin Sod/Tazobactam (Sod 3.375 gm/ Sodium Chloride) 50 mls @ 100 mls/hr IV Q6H [facility] Sodium Chloride (Normal Saline) Confirm Administered Dose 20 mls @ as directed .ROUTE .STK-MED ONE Stop: 05/21/21 09:21 Acetaminophen (Ofirmev 1000 Mg/100 Ml) Confirm Administered Dose 100 mls @ as directed .ROUTE .STK-MED ONE Stop: 05/21/21 11:38 Lidocaine (Lidocaine 2% 5 Ml Sdv) Confirm Administered Dose 5 ml .ROUTE .STK-MED ONE Stop: 05/21/21 09:17 Midazolam HCl (Midazolam 1 Mg/Ml 2 Ml Sdv) Confirm Administered Dose 2 mg .ROUTE .STK-MED ONE Stop: 05/21/21 09:24 Octyl Cyanoacrylate (Octyl 2-Cyanoacrylate 1 Tube) Confirm Administered Dose 1 applic .ROUTE .STK-MED ONE Stop: 05/21/21 09:22 Ondansetron HCl (Ondansetron 4 Mg/2 Ml Sdv) Confirm Administered Dose 4 mg .ROUTE .STK-MED ONE Stop: 05/21/21 11:39 Oxycodone/Acetaminophen (Acetaminophen/Oxycodone 325-5 Mg Tab) 2 tab PO Q4H PRN PRN Reason: Pain (severe 7-10) Propofol (Propofol 200 Mg/20 Ml Sdv) Confirm Administered Dose 200 mg .ROUTE .STK-MED ONE Stop: 05/21/21 09:17 Rocuronium [place] (Rocuronium [place] 50 Mg/5 Ml Syringe) Confirm Administered Dose 50 mg .ROUTE .STK-MED ONE Stop: 05/21/21 09:17 Rocuronium [place] (Rocuronium [place] 50 Mg/5 Ml Syringe) Confirm Administered Dose 50 mg .ROUTE .STK-MED ONE Stop: 05/21/21 10:29 Sugammadex Sodium (Sugammadex Sodium 200 Mg/2 Ml Vial) Confirm Administered Dose 200 mg .ROUTE .STK-MED ONE Stop: 05/21/21 11:39 - Exam General: Reports: Alert, Oriented HEENT: Reports: Pupils Equal, Pupils Reactive Lungs: Reports: Normal Respiratory Effort Cardiovascular: Reports: Regular Rate GI/Abdominal Exam: Soft, Non-Tender, No Distention, No Mass Extremities: Normal Inspection
== END 2021-05-22 13:30 | disposition home or self-care (01) ==
LOC: MW.ED 16:48 → MW.MS 19:26
PROVIDERS: ADMIT Surgery; ATTEND Surgery
DX: K80.00 Calculus of gallbladder with acute cholecystitis without obstruction (principal); K82.A1 Gangrene of gallbladder in cholecystitis; Z79.899 Other long term (current) drug therapy
CPT/HCPCS: 36415; 47562; 76705; 80053; 81001; 83036; 83605; 85025; 85027; 85610; 87040; 87070; 87075; 87205; 96365; 96375; 96376; 99285; A9270; G0378; J0131; J0690; J0696; J1100; J1170; J1200; J2250; J2405; J2543; J2704; J3010; J3490; J7120; 00790